=== PATIENT | female | born 1975 | race Caucasian/White ===

== ENCOUNTER 2024-02-12 16:20 | Emergency (ER) | payer MEDICARE, SELFPAY ==
[2024-02-12] VITALS (9 sets, daily range): BP systolic 147–184; BP diastolic 72–80; PULSE 68–91; RESP 12–24; TEMP 37; O2SAT 94–98; BMI 29.0
--- NOTE | 2024-02-12 16:29 | EKG_ITS ---
[place] [id number] [place] [id number] Test Date: 2024-02-12 Pat Name: Luna Whiteside Department: [facility] Room: Gender: Female [employer]oles[employer]er: JANETH : 1975 Requested By: Order Number: [id number] Reading MD: Lucas Myers Measurements Intervals [place] Rate: 74 P: 23 VT: 148 QRS: 4 QRSD: 78 T: 44 QT: 400 QTc: 444 Interpretive Statements Normal sinus rhythm Electronically Signed On 02-15-2024 15:20:28 PDT by Lucas Myers
[2024-02-12 16:44] LABS: Add Manual Diff / Slide Review NO; Basophils Absolute Auto 100 /uL (0-100); Basophils Percent Auto 0.5 % (0-2); Eosinophils Absolute Auto 300 /uL (0-450); Eosinophils Percent Auto 2.5 % (2-4); Hematocrit 42.8 % (36-46); Hemoglobin 14.4 g/dL (12.0-16.0); Lymphocytes Absolute Auto 2300 /uL (1100-4500); Lymphocytes Percent Auto 17.8 % (25-40); Mean Corpuscular HGB Conc 33.6 % (30-36); Mean Corpuscular Hemoglobin 32.9 PG (26-34); Mean Corpuscular Volume 97.9 fL (80-100); Monocytes Absolute Auto 500 /uL (0-900); Monocytes Percent Auto 3.7 % (3-14); Neutrophils Absolute Auto 9700 /uL (1500-7000); Neutrophils Percent Auto 75.5 % (50-75); Platelet Count 248 X10^3/uL (150-400); Red Blood Cell Count 4.38 X10^6/uL (4.0-5.2); Red Cell Distribution Width 14.5 % (11.6-14.8); White Blood Cell Count 12.9 X10^3/uL (4.5-11.0)
[2024-02-12 16:58] LABS: Alanine Aminotransferase 13 IU/L (<35); Albumin 4.3 g/dL (3.5-5.0); Albumin Globulin Ratio 1.3 (1.0-2.8); Alkaline Phosphatase 80 U/L (38-126); Aspartate Aminotransferase 20 IU/L (14-36); BUN Creatinine Ratio 13.8 (6-22); Bilirubin Total 1.4 mg/dL (0.2-1.3); Blood Urea Nitrogen 8 mg/dL (7-17); Calcium 9.8 mg/dL (8.4-10.2); Carbon Dioxide 26 mmol/L (22-32); Chloride 103 mmol/L (98-107); Estimated Glomerular Filt Rate > 60 mL/min (>60); Globulin 3.4 g/dL (1.7-4.1); Glucose 105 mg/dL (70-100); HEMOLYSIS < 15 (0-50); Lipase 60 U/L (23-300); Potassium 4.2 mmol/L (3.4-5.1); Sodium 138 mmol/L (137-145); Total Protein 7.7 g/dL (6.3-8.2)
[2024-02-12] MEDS: ONDANSETRON 4 MG/2 ML INJ IV (17:01)
[2024-02-12 17:09] LABS: Troponin I < 0.012 ng/mL (0.01-0.034)
--- NOTE | 2024-02-12 17:29 | ED_ITS ---
HPI - Weakness <Alma Uday, DO - Last Filed: 02/18/24 12:11> General Chief complaint: Weakness Stated complaint: Increased Weakness Time Seen by Provider: 02/12/24 16:36 Source: patient and EMS Mode of arrival: EMS History of Present Illness HPI Narrative: Patient is a 48-year-old female with history of gastroparesis, chronic abdominal pain chronic constipation chronic narcotic currently under contract with [facility] on 50 mg of p.o. morphine use PTSD pulmonary embolism on Xarelto, presenting today with abdominal pain nausea vomiting diarrhea. She reports that for the last 7 days she has had vomiting and diarrhea. She reports that her throat is so sore that she is unable to keep anything down. She has had about 5 episodes a day of nonbloody diarrhea. She has previously had Butt catheters for home IV hydration. She says that she has anasarca and they are worried about her liver. She denies any marijuana use. She does report some cyclic vomiting type symptoms hence the Butt catheter, she currently does not have a Butt catheter. Related Data Home Medications Medication Instructions Recorded Confirmed diazepam 5 mg tablet 5 mg PO BID PRN 01/21/24 01/21/24 morphine 15 mg immediate release 15 mg PO TID #0 tabs 01/21/24 01/21/24 tablet duloxetine 60 mg capsule,delayed 120 mg PO DAILY 02/09/24 02/09/24 release ondansetron 4 mg disintegrating 4 mg PO Q8H PRN 02/09/24 02/09/24 tablet tizanidine 4 mg tablet 8 mg PO BID 02/09/24 02/09/24 trazodone 150 mg tablet 150 mg PO ONCE PM 02/09/24 02/09/24 Previous Rx's Medication Instructions Recorded rivaroxaban 20 mg tablet (Xarelto) 20 mg PO DAILY #90 tabs 01/27/24 tizanidine 4 mg tablet 4 mg PO BEDTIME PRN muscle 02/10/24 spasticity #30 tabs Allergies Allergy/AdvReac Type Severity Reaction Status Date / Time ketamine [KETAMINE] Allergy Unknown feels as Verified 02/12/24 16:59 if my soul is being ripped from my body Penicillins [PENICILLINS] Allergy Unknown anaphalaxis Verified 02/12/24 16:59 NSAIDS (Non-Steroidal AdvReac Gastrointestinal Verified 02/12/24 16:59 Anti-Inflamma Upset Patient History <Alma Frye DO - Last Filed: 02/18/24 12:11> Medical History Rheumatoid arthritis Sleep apnea Abnormal chest xray Depression Anxiety Migraines Fibromyalgia Chronic back pain Lyme disease Lupus anticoagulant syndrome Vertigo Hemorrhoid Gastroparesis Pulmonary embolism Chronic pain PTSD (post-traumatic stress disorder) Positive blood cultures Abdominal pain Vomiting and diarrhea Cyclic vomiting syndrome Surgical History History of surgery Family History Grandmother Cancer Diabetes mellitus Mental health problem Stroke Grandmother COPD (chronic obstructive pulmonary disease) Family/Other Mental health problem Social History Smoking Status: Former smoker Smoking Status: Former smoker alcohol intake frequency: holidays/special occasions only Substance Use Type: does not use Exam <Alma Frye DO - Last Filed: 02/18/24 12:11> Initial Vital Signs Initial Vital Signs: Vital Signs Pulse Rate 75 02/12/24 16:23 Respiratory Rate 18 02/12/24 16:23 Blood Pressure 184/77 H 02/12/24 16:23 Pulse Oximetry 96 02/12/24 16:23 Oxygen Delivery Method Room Air 02/12/24 16:23 GENERAL: Tearful 48-year-old female HEENT: Head atraumatic,EOMI, pupils reactive, face symmetric, moist mucous membranes CARDIOVASCULAR: Regular rate and rhythm without murmurs, rubs or gallops. RESPIRATORY: Breath sounds equal bilaterally, no wheezes rales or rhonchi. ABDOMEN: Soft, nontender. Normoactive bowel sounds all 4 quadrants. No guarding or rebound. EXTREMITIES: Normal range of motion, no clubbing or edema. Neurovascularly intact NEUROLOGICAL: Alert and oriented x4.Normal gait and speech. Cranial nerves II through XII grossly intact. SKIN: Warm, dry, no laceration, no petechiae, no rashes or lesions. <Siomara Adams MD - Last Filed: 02/12/24 20:56> Initial Vital Signs Initial Vital Signs: Vital Signs Pulse Rate 75 02/12/24 16:23 Respiratory Rate 18 02/12/24 16:23 Blood Pressure 184/77 H 02/12/24 16:23 Pulse Oximetry 96 02/12/24 16:23 Oxygen Delivery Method Room Air 02/12/24 16:23 Course <Alma Frye DO - Last Filed: 02/18/24 12:11> Orders Ordered: Discontinued Medications Droperidol (Droperidol 5 Mg/2 Ml Vial) 0.625 mg IV NOW ONE Stop: 02/12/24 17:38 Last Admin: 02/12/24 18:02 Dose: 0.625 mg Documented By: DIEGO Hydromorphone HCl (Hydromorphone 1 Mg Inj) 1 mg IV NOW ONE Stop: 02/12/24 17:38 Last Admin: 02/12/24 18:00 Dose: 1 mg Documented By: DIEGO Hydromorphone HCl (Hydromorphone 1 Mg Inj) 1 mg IV NOW ONE Stop: 02/12/24 19:32 Last Admin: 02/12/24 20:26 Dose: 1 mg Documented By: GIULIANA Sodium Chloride (Normal Saline 0.9%) 1,000 mls @ 1,000 mls/hr IV BOLUS ONE Stop: 02/12/24 18:36 Last Infusion: 02/12/24 20:34 Dose: Infused Documented By: Admin: 02/12/24 18:00 Dose: 1,000 mls/hr Documented By: IDEGO Sodium Chloride (Normal Saline 0.9%) 1,000 mls @ 1,000 mls/hr IV BOLUS ONE Stop: 02/12/24 20:05 Last Infusion: 02/12/24 19:57 Dose: Infused Documented By: Admin: 02/12/24 19:18 Dose: 1,000 mls/hr Documented By: GIULIANA Ondansetron HCl (Ondansetron 4 Mg/2 Ml Inj) 4 mg IV NOW ONE Stop: 02/12/24 16:59 Last Admin: 02/12/24 17:01 Dose: 4 mg Documented By: DIEGO Vital Signs Vital signs: Vital Signs - 8 hr 02/12/24 16:23 02/12/24 16:23 02/12/24 16:23 Temperature Pulse Rate 75 82 Respiratory Rate 18 Blood Pressure 184/77 H 184/77 H Pulse Oximetry 96 95 Oxygen Delivery Method Room Air 02/12/24 16:30 02/12/24 16:31 02/12/24 17:00 Temperature 98.6 F Pulse Rate 79 78 Respiratory Rate 12 Blood Pressure Pulse Oximetry 94 95 Oxygen Delivery Method 02/12/24 17:30 02/12/24 18:00 02/12/24 18:09 Temperature Pulse Rate 91 H 71 81 Respiratory Rate 24 16 21 Blood Pressure Pulse Oximetry 96 98 98 Oxygen Delivery Method 02/12/24 18:09 02/12/24 18:30 02/12/24 18:30 Temperature Pulse Rate 68 Respiratory Rate Blood Pressure 167/78 H 147/72 H Pulse Oximetry 96 Oxygen Delivery Method 02/12/24 20:45 Temperature Pulse Rate 72 Respiratory Rate 16 Blood Pressure 165/80 H Pulse Oximetry 96 Oxygen Delivery Method Room Air <Siomara Adams MD - Last Filed: 02/12/24 20:56> Orders Ordered: Discontinued Medications Droperidol (Droperidol 5 Mg/2 Ml Vial) 0.625 mg IV NOW ONE Stop: 02/12/24 17:38 Last Admin: 02/12/24 18:02 Dose: 0.625 mg Documented By: DIEGO Hydromorphone HCl (Hydromorphone 1 Mg Inj) 1 mg IV NOW ONE Stop: 02/12/24 17:38 Last Admin: 02/12/24 18:00 Dose: 1 mg Documented By: DIEGO Hydromorphone HCl (Hydromorphone 1 Mg Inj) 1 mg IV NOW ONE Stop: 02/12/24 19:32 Last Admin: 02/12/24 20:26 Dose: 1 mg Documented By: GIULIANA Sodium Chloride (Normal Saline 0.9%) 1,000 mls @ 1,000 mls/hr IV BOLUS ONE Stop: 02/12/24 18:36 Last Infusion: 02/12/24 20:34 Dose: Infused Documented By: Admin: 02/12/24 18:00 Dose: 1,000 mls/hr Documented By: DIEGO Sodium Chloride (Normal Saline 0.9%) 1,000 mls @ 1,000 mls/hr IV BOLUS ONE Stop: 02/12/24 20:05 Last Infusion: 02/12/24 19:57 Dose: Infused Documented By: Admin: 02/12/24 19:18 Dose: 1,000 mls/hr Documented By: GIULIANA Ondansetron HCl (Ondansetron 4 Mg/2 Ml Inj) 4 mg IV NOW ONE Stop: 02/12/24 16:59 Last Admin: 02/12/24 17:01 Dose: 4 mg Documented By: DIEGO Vital Signs Vital signs: Vital Signs - 8 hr 02/12/24 16:23 02/12/24 16:23 02/12/24 16:23 Temperature Pulse Rate 75 82 Respiratory Rate 18 Blood Pressure 184/77 H 184/77 H Pulse Oximetry 96 95 Oxygen Delivery Method Room Air 02/12/24 16:30 02/12/24 16:31 02/12/24 17:00 Temperature 98.6 F Pulse Rate 79 78 Respiratory Rate 12 Blood Pressure Pulse Oximetry 94 95 Oxygen Delivery Method 02/12/24 17:30 02/12/24 18:00 02/12/24 18:09 Temperature Pulse Rate 91 H 71 81 Respiratory Rate 24 16 21 Blood Pressure Pulse Oximetry 96 98 98 Oxygen Delivery Method 02/12/24 18:09 02/12/24 18:30 02/12/24 18:30 Temperature Pulse Rate 68 Respiratory Rate Blood Pressure 167/78 H 147/72 H Pulse Oximetry 96 Oxygen Delivery Method 02/12/24 20:45 Temperature Pulse Rate 72 Respiratory Rate 16 Blood Pressure 165/80 H Pulse Oximetry 96 Oxygen Delivery Method Room Air MDM - Weakness <Alma Frye, - Last Filed: 02/18/24 12:11> Lab Data 02/12/24 16:37 02/12/24 16:37 Labs: Lab Results 02/12/24 Range/Units 16:37 WBC 12.9 H (4.5-11.0) X10^3/uL RBC 4.38 (4.0-5.2) X10^6/uL Hgb 14.4 (12.0-16.0) g/dL Hct 42.8 (36-46) % MCV 97.9 (80-100) fL MCH 32.9 (26-34) PG MCHC 33.6 (30-36) % RDW 14.5 (11.6-14.8) % Plt Count 248 (150-400) X10^3/uL Neut % (Auto) 75.5 H (50-75) % Lymph % (Auto) 17.8 L (25-40) % [place] % (Auto) 3.7 (3-14) % Eos % (Auto) 2.5 (2-4) % Baso % (Auto) 0.5 (0-2) % Neut # (Auto) 9700 H (1390-2911) /uL Lymph # (Auto) 2300 (1208-4954) /uL [place] # (Auto) 500 (0-900) /uL Eos # (Auto) 300 (0-450) /uL Baso # (Auto) 100 (0-100) /uL Sodium 138 (137-145) mmol/L Potassium 4.2 (3.4-5.1) mmol/L Chloride 103 (98-107) mmol/L Carbon Dioxide 26 (22-32) mmol/L BUN 8 (7-17) mg/dL Creatinine 0.58 (0.52-1.04) mg/dL Estimated GFR > 60 (>60) mL/min BUN/Creatinine Ratio 13.8 (6-22) Glucose 105 H (70-100) mg/dL Calcium 9.8 (8.4-10.2) mg/dL Total Bilirubin 1.4 H (0.2-1.3) mg/dL AST 20 (14-36) IU/L ALT 13 (<35) IU/L Alkaline Phosphatase 80 (38-126) U/L Troponin I < 0.012 (0.01-0.034) ng/mL Total Protein 7.7 (6.3-8.2) g/dL Albumin 4.3 (3.5-5.0) g/dL Globulin 3.4 (1.7-4.1) g/dL Albumin/Globulin Ratio 1.3 (1.0-2.8) Lipase 60 (23-300) U/L Urine Dip Bedside Urine Glucose Negative Bedside Urine Bilirubin - Negative Bedside Urine Ketone ++ 40 Urine Specific [place] 1.015 Bedside Urine Occult Blood - Negative Bedside Urine pH 6.5 Bedside Urine Protein - Negative Bedside Urine Urobilinogen - Negative Bedside Urine Nitrite - Negative Bedside Urine Leukocytes - Negative Esterase Imaging Data CT scan - abdomen/pelvis: Radiologist Impression: PROCEDURE: CT ABDOMEN PELVIS W CON INDICATIONS: vomiting severe pain TECHNIQUE: After the administration of intravenous contrast, axial sections acquired from the lung bases to the pubic symphysis. Coronal and sagittal reformats were performed. For radiation dose reduction, the following was used: automated exposure control, adjustment of mA and/or kV according to patient size. COMPARISON: [facility], CT, CT CHEST ABDOMEN PELVIS WITH CONTRAST, 11/11/2022, 17:39. FINDINGS: Image quality: Diagnostic Lower chest: Basal scarring and atelectasis. Mild distal esophageal wall thickening is nonspecific. Normal heart size where visualized Liver: Probable focal fat adjacent to the falciform ligament. No suspicious solid mass identified. Subcentimeter lesions are too small to characterize, usually cysts or hemangiomas. Previous heterogeneity is less conspicuous today Gallbladder and biliary system: Unremarkable, nondilated Pancreas: No ductal dilation Spleen: Nonenlarged Adrenals: No discrete nodule Kidneys: No solid mass or hydronephrosis Vessels and lymph nodes: The main portal vein is patent. No abdominal aortic aneurysm or pathologic lymph nodes by size criteria. Bowel and peritoneum: No small bowel obstruction. Abdominal clips are again seen. Colonic diverticula are seen, without evidence of acute inflammation. The appendix is nondilated Trace pelvic fluid. Body wall: Mild anasarca. Pelvis: Bladder is unremarkable. The uterus is absent. Bones: No acute or suspicious osseous finding. There are degenerative changes. IMPRESSION: Questionable mild distal esophageal wall thickening, possibly esophagitis. Endoscopy could further evaluate if necessary. No small bowel obstruction. Trace pelvic free fluid, nonspecific. No drainable component. Other findings above. Dictated by: Adryan Garcia M.D. on 02/12/2024 at 18:04 ECG Data Attestation: I personally reviewed and interpreted this ECG as follows: Prior ECG tracings: not available for review Interpretation: Normal sinus rhythm rate 74 ME interval 148 QRS 78 QTC 444 T-wave inversion noted in V1 V2 MDM Narrative Medical decision making narrative: MDM CC: Nausea vomiting abdominal pain Complicating co-morbidities: Chronic abdominal pain chronic pain medication cyclic vomiting Medical records reviewed: PCP visit from 02/10/2020 Differential considered: Narcotic withdrawal she has been unable to keep down any sort of pain medications, obstruction gastroenteritis Exam documented above, pertinent findings include: Extremely tearful tender abdomen no significant distention Lab Test results independently reviewed as above. Pertinent findings: WBC 12 patient reports that she has a chronic elevation of her WBC are last WBC is from 2016, PT 13.9 INR 1.2 PTT 45, sodium 138 potassium 4.2 chloride 1 3 carbon dioxide 26 BUN 8 creatinine 0.5, glucose 105, bilirubin 1.4 AST 20, ALT 13, troponin negative Independently reviewed EKG as above no prolonged QT no ischemic changes Imaging studies independently reviewed: Consultations: [ ] Treatments: IV fluids Dilaudid Zofran droperidol Re-evaluations: [ ] Discussion: Patient extremely tearful upon evaluation reports nausea vomiting for 5-7 days. However electrolytes and creatinine are within normal limits. She reports problems with her liver her liver enzymes are within normal limits her INR is within normal limits bilirubin is slightly elevated at 1.4 but no significant right upper quadrant pain. Patient signed out to Dr. Adams for further disposition <Siomara Adams MD - Last Filed: 02/12/24 20:56> Lab Data Labs: Lab Results 02/12/24 Range/Units 16:37 WBC 12.9 H (4.5-11.0) X10^3/uL RBC 4.38 (4.0-5.2) X10^6/uL Hgb 14.4 (12.0-16.0) g/dL Hct 42.8 (36-46) % MCV 97.9 (80-100) fL MCH 32.9 (26-34) PG MCHC 33.6 (30-36) % RDW 14.5 (11.6-14.8) % Plt Count 248 (150-400) X10^3/uL Neut % (Auto) 75.5 H (50-75) % Lymph % (Auto) 17.8 L (25-40) % [place] % (Auto) 3.7 (3-14) % Eos % (Auto) 2.5 (2-4) % Baso % (Auto) 0.5 (0-2) % Neut # (Auto) 9700 H (4005-5928) /uL Lymph # (Auto) 2300 (3475-5834) /uL [place] # (Auto) 500 (0-900) /uL Eos # (Auto) 300 (0-450) /uL Baso # (Auto) 100 (0-100) /uL Sodium 138 (137-145) mmol/L Potassium 4.2 (3.4-5.1) mmol/L Chloride 103 (98-107) mmol/L Carbon Dioxide 26 (22-32) mmol/L BUN 8 (7-17) mg/dL Creatinine 0.58 (0.52-1.04) mg/dL Estimated GFR > 60 (>60) mL/min BUN/Creatinine Ratio 13.8 (6-22) Glucose 105 H (70-100) mg/dL Calcium 9.8 (8.4-10.2) mg/dL Total Bilirubin 1.4 H (0.2-1.3) mg/dL AST 20 (14-36) IU/L ALT 13 (<35) IU/L Alkaline Phosphatase 80 (38-126) U/L Troponin I < 0.012 (0.01-0.034) ng/mL Total Protein 7.7 (6.3-8.2) g/dL Albumin 4.3 (3.5-5.0) g/dL Globulin 3.4 (1.7-4.1) g/dL Albumin/Globulin Ratio 1.3 (1.0-2.8) Lipase 60 (23-300) U/L Urine Dip Bedside Urine Glucose Negative Bedside Urine Bilirubin - Negative Bedside Urine Ketone ++ 40 Urine Specific [place] 1.015 Bedside Urine Occult Blood - Negative Bedside Urine pH 6.5 Bedside Urine Protein - Negative Bedside Urine Urobilinogen - Negative Bedside Urine Nitrite - Negative Bedside Urine Leukocytes - Negative Esterase MDM Narrative Medical decision making narrative: [facility] CC: Nausea vomiting abdominal pain Complicating co-morbidities: Chronic abdominal pain chronic pain medication cyclic vomiting Medical records reviewed: PCP visit from 02/10/2020 Differential considered: Narcotic withdrawal she has been unable to keep down any sort of pain medications, obstruction gastroenteritis Exam documented above, pertinent findings include: Extremely tearful tender abdomen no significant distention Lab Test results independently reviewed as above. Pertinent findings: WBC 12 patient reports that she has a chronic elevation of her WBC are last WBC is from 2016, PT 13.9 INR 1.2 PTT 45, sodium 138 potassium 4.2 chloride 1 3 carbon dioxide 26 BUN 8 creatinine 0.5, glucose 105, bilirubin 1.4 AST 20, ALT 13, troponin negative Independently reviewed EKG as above no prolonged QT no ischemic changes Imaging studies independently reviewed: Consultations: [ ] Treatments: IV fluids Dilaudid Zofran droperidol Re-evaluations: [ ] Discussion: Patient extremely tearful upon evaluation reports nausea vomiting for 5-7 days. However electrolytes and creatinine are within normal limits. She reports problems with her liver her liver enzymes are within normal limits her INR is within normal limits bilirubin is slightly elevated at 1.4 but no significant right upper quadrant pain. Patient signed out to Dr. Adams for further disposition Dr. Adams -care of patient is signed out to me. Patient reassessed, she was resting comfortably in bed, speaking conversationally on her cell phone. Patient states that she feels much better after receiving IV fluids. She did request another bag of fluids, which was ordered for her. Laboratory work and imaging negative for acute findings. Patient informed of all results. She states that she believes that her symptoms are due to not having a Butt catheter anymore and that she can not maintain hydration. She was encouraged to follow up with her specialists if she believes that a Butt needs to be replaced. Patient requested an additional dose of pain medications prior to leaving the emergency department since she left all of her normal pain medications at home, an additional dose was provided prior to discharge from the emergency department Discharge Plan Departure Patient Disposition: Home Clinical Impression: Abdominal pain, Nausea & vomiting Instructions: Nausea and Vomiting-Adult Activity Restrictions/Additional Instructions: Your laboratory work and CT imaging today were reassuring. I recommend talking to your specialists about getting the Butt catheter replaced if you feel you are not able to stay hydrated. Prescriptions: No Action morphine 15 mg tablet 15 mg PO TID Qty: 0 Xarelto 20 mg tablet 20 mg PO DAILY Qty: 90 0RF Rx Instructions: must administer with evening meal diazepam 5 mg tablet 5 mg PO BID PRN duloxetine 60 mg capsule,delayed release(DR/EC) 120 mg PO DAILY trazodone 150 mg tablet 150 mg PO ONCE PM ondansetron 4 mg tablet,disintegrating 4 mg PO Q8H PRN tizanidine 4 mg tablet 8 mg PO BID tizanidine 4 mg tablet 4 mg PO BEDTIME PRN (Reason: muscle spasticity) Qty: 30 0RF Rx Instructions: 1-2 only as needed Referrals: Arabella Choudhary PA-C [Primary Care Provider] - Stand Alone Forms: Patient Portal/API
--- NOTE | 2024-02-12 17:37 | DI.CT.S_ITS ---
PROCEDURE: CT ABDOMEN PELVIS W CON INDICATIONS: vomiting severe pain TECHNIQUE: After the administration of intravenous contrast, axial sections acquired from the lung bases to the pubic symphysis. Coronal and sagittal reformats were performed. For radiation dose reduction, the following was used: automated exposure control, adjustment of mA and/or kV according to patient size. COMPARISON: [facility], CT, CT CHEST ABDOMEN PELVIS WITH CONTRAST, 11/11/2022, 17:39. FINDINGS: Image quality: Diagnostic Lower chest: Basal scarring and atelectasis. Mild distal esophageal wall thickening is nonspecific. Normal heart size where visualized Liver: Probable focal fat adjacent to the falciform ligament. No suspicious solid mass identified. Subcentimeter lesions are too small to characterize, usually cysts or hemangiomas. Previous heterogeneity is less conspicuous today Gallbladder and biliary system: Unremarkable, nondilated Pancreas: No ductal dilation Spleen: Nonenlarged Adrenals: No discrete nodule Kidneys: No solid mass or hydronephrosis Vessels and lymph nodes: The main portal vein is patent. No abdominal aortic aneurysm or pathologic lymph nodes by size criteria. Bowel and peritoneum: No small bowel obstruction. Abdominal clips are again seen. Colonic diverticula are seen, without evidence of acute inflammation. The appendix is nondilated Trace pelvic fluid. Body wall: Mild anasarca. Pelvis: Bladder is unremarkable. The uterus is absent. Bones: No acute or suspicious osseous finding. There are degenerative changes. IMPRESSION: Questionable mild distal esophageal wall thickening, possibly esophagitis. Endoscopy could further evaluate if necessary. No small bowel obstruction. Trace pelvic free fluid, nonspecific. No drainable component. Other findings above. Dictated by: Adryan Garcia M.D. on 02/12/2024 at 18:04 Approved by: Adryan Garcia M.D. on 02/12/2024 at 18:10
[2024-02-12] MEDS: SODIUM CHLORIDE 0.9% 1,000 ML 1000 ML IV ×2 (18:00→19:18)
[2024-02-12] MEDS: HYDROMORPHONE 1 MG INJ IV ×2 (18:00→20:26)
[2024-02-12] MEDS: DROPERIDOL 5 MG/2 ML VIAL 0.625 MG IV (18:02)
--- NOTE | 2024-02-12 18:46 | PC.NURSE ---
States she feels dehydrated. Pt reports her PCP told her to come to ED for worsening liver functioning labs. Pt reports having lupus. Pt states she is having generalized abdominal pain as well
== END 2024-02-12 20:47 | disposition home or self-care (01) ==
PROVIDERS: Emergency Provider Emergency Medicine; Family Provider Family Medicine; PCP Physician Assistant Medical
DX: R10.9 Unspecified abdominal pain (principal); R11.2 Nausea with vomiting, unspecified; R19.7 Diarrhea, unspecified; J02.9 Acute pharyngitis, unspecified; Z79.01 Long term (current) use of anticoagulants
CPT/HCPCS: 36415; 74177; 80053; 81003; 83690; 84484; 85025; 93005; 96361; 96374; 96375; 96376; 99284; J1170; J1790; J2405; Q9967

== ENCOUNTER → 2024-05-25 09:30 | Outpatient (CLI) | payer MEDICARE, MEDICAID, SELFPAY ==
[2024-06-02 21:11] LABS: Lactoferrin, Fecal Quant <1.00 ug/mL(g) (0.00-7.24)
== END ==
PROVIDERS: Family Provider Family Medicine; PCP Physician Assistant Medical; Visit Provider Student in an Organized Health Care Education/Training Program
DX: K31.84 Gastroparesis (principal)
CPT/HCPCS: 83631